=== PATIENT | female | born 1980 | race Caucasian/White ===

== ENCOUNTER → 2019-03-16 | Outpatient (CLI) | payer OTHER | LOC: RAD 13:18 | DX: M76.892 Other specified enthesopathies of left lower limb, excluding foot (principal) ==

== ENCOUNTER → 2019-12-09 | Outpatient (CLI) | payer OTHER ==
[2019-12-09 09:10] LABS: EOS # 0.1 (0.04-0.40); EOS % 1.8 % (1.0-5.0); HEMATOCRIT 43.5 % (37.0-47.0); HEMOGLOBIN 14.7 g/dL (12.5-16.0); LYMPH# 1.4 (1.50-4.00); MEAN CELL VOLUME 90 fl (78-100); MEAN CORPUSCULAR HEMOGLOBIN 30 pg (27-31); MEAN CORPUSCULAR HGB CONC 34 g/dL (33-37); MONO # 0.5 (0.20-0.80); NEU # 4.7 (1.40-6.50); PLATELET COUNT 225 K/mm3 (130-400); RED BLOOD COUNT 4.84 M/mm3 (4.10-5.30); RED CELL DISTRIBUTION WIDTH 13.1 % (11.5-14.5); WHITE BLOOD COUNT 6.8 K/mm3 (4.8-10.8)
[2019-12-09 09:11] LABS: ALBUMIN 4.7 g/dL (3.5-5.0)
[2019-12-09 09:12] LABS: CALCIUM 9.5 mg/dL (8.3-10.5)
[2019-12-09 09:13] LABS: TOTAL PROTEIN 7.6 g/dL (6.4-8.3)
[2019-12-09 09:15] LABS: TOTAL BILIRUBIN 0.8 mg/dL (0.2-1.2)
== END ==
LOC: RAD 08:47
PROVIDERS: Physician Assistant
DX: Z13.29 Encounter for screening for other suspected endocrine disorder (principal); E03.9 Hypothyroidism, unspecified; K90.9 Intestinal malabsorption, unspecified; E78.49 Other hyperlipidemia; N92.0 Excessive and frequent menstruation with regular cycle

== ENCOUNTER → 2019-12-27 | Outpatient (CLI) | payer OTHER | LOC: LAB 12:21 | DX: Z20.828 Contact with and (suspected) exposure to other viral communicable diseases (principal) ==

== ENCOUNTER → 2020-02-03 | Outpatient (CLI) | payer OTHER | LOC: LAB 10:48 | DX: E03.9 Hypothyroidism, unspecified (principal); R79.89 Other specified abnormal findings of blood chemistry ==

== ENCOUNTER → 2020-05-08 | Outpatient (CLI) | payer OTHER | LOC: LAB 09:44 | DX: Z20.828 Contact with and (suspected) exposure to other viral communicable diseases (principal) ==

== ENCOUNTER → 2020-12-25 | Outpatient (CLI) | payer OTHER ==
[2020-12-25 07:55] LABS: BASO # 0.04 (0.02-0.10); EOS # 0.17 (0.04-0.40); EOS % 4.4 % (1.0-5.0); HEMATOCRIT 39.4 % (37.0-47.0); HEMOGLOBIN 14.1 g/dL (12.5-16.0); LYMPH# 1.29 (1.50-4.00); MEAN CELL VOLUME 88 fl (78-100); MEAN CORPUSCULAR HEMOGLOBIN 32 pg (27-31); MEAN CORPUSCULAR HGB CONC 36 g/dL (33-37); MEAN PLATELET VOLUME 9.6 fl (7.4-10.4); MONO # 0.35 (0.20-0.80); NEU # 2.04 (1.40-6.50); PLATELET COUNT 179 K/mm3 (130-400); RED BLOOD COUNT 4.47 M/mm3 (4.10-5.30); WHITE BLOOD COUNT 3.9 K/mm3 (4.8-10.8)
[2020-12-25 08:14] LABS: POTASSIUM 4.1 mmol/L (3.5-5.1)
[2020-12-25 08:15] LABS: ALBUMIN 4.2 g/dL (3.5-5.0)
[2020-12-25 08:16] LABS: CALCIUM 8.9 mg/dL (8.3-10.5)
[2020-12-25 08:17] LABS: TOTAL PROTEIN 6.8 g/dL (6.4-8.3)
[2020-12-25 08:19] LABS: TOTAL BILIRUBIN 0.7 mg/dL (0.2-1.2)
== END ==
LOC: LAB 07:41
PROVIDERS: Physician Assistant
DX: Z00.00 Encounter for general adult medical examination without abnormal findings (principal); E03.9 Hypothyroidism, unspecified; E55.9 Vitamin D deficiency, unspecified

== ENCOUNTER → 2021-11-22 | Outpatient (CLI) | payer OTHER | LOC: LAB 07:34 | DX: Z12.31 Encounter for screening mammogram for malignant neoplasm of breast (principal) ==

== ENCOUNTER 2024-04-30 21:44 | Emergency (ER) | payer OTHER ==
[~2024-04-30] VITALS: Ht 172.7 cm; Wt 94.1 kg
[2024-04-30] MEDS ORDERED: PHENTERMINE15 MG PO (21:54)
[2024-04-30] MEDS ORDERED: LEVOTHYROXINE0.05 MG PO (21:54)
[2024-04-30] MEDS ORDERED: diphenhydrAMINE 50 MG/ML 1 ML VIAL IV ONE (22:15)
[2024-04-30 22:30] LABS: BASO # 0.02 K/mm3 (0.02-0.10); HEMATOCRIT 38.2 % (37.0-47.0); HEMOGLOBIN 13.7 g/dL (12.5-16.0); LYMPH# 1.65 K/mm3 (1.50-4.00); MEAN CELL VOLUME 86 fl (78-100); MEAN CORPUSCULAR HEMOGLOBIN 31 pg (27-31); MEAN CORPUSCULAR HGB CONC 36 g/dL (33-37); MEAN PLATELET VOLUME 9.6 fl (7.4-10.4); MONO # 0.65 K/mm3 (0.20-0.80); PLATELET COUNT 157 K/mm3 (130-400); RED BLOOD COUNT 4.42 M/mm3 (4.10-5.30); RED CELL DISTRIBUTION WIDTH 12.3 % (11.5-14.5); WHITE BLOOD COUNT 9.9 K/mm3 (4.8-10.8)
[2024-04-30 22:33] LABS: ALBUMIN 4.5 g/dL (3.5-5.0)
[2024-04-30 22:35] LABS: CALCIUM 9.5 mg/dL (8.3-10.5)
[2024-04-30 22:38] LABS: TOTAL BILIRUBIN 0.7 mg/dL (0.2-1.2)
[2024-04-30] MEDS ORDERED: ZOFRAN ODT4 MG PO (22:57)
[2024-04-30 23:44] LABS: URINE APPEARANCE CLEAR (CLEAR); URINE COLOR YELLOW (YELLOW)
[2024-04-30 23:45] LABS: PH-URINE 7.5 (5.0 - 8.0); URINE BILIRUBIN NEGATIVE (NEGATIVE); URINE BLOOD TRACE-INTACT (NEGATIVE); URINE GLUCOSE NEGATIVE (NEGATIVE); URINE KETONE 1+ (NEGATIVE); URINE LEUKOCYTE ESTERASE NEGATIVE (NEGATIVE); URINE NITRATE NEGATIVE (NEGATIVE); URINE PROTEIN(semi-quant) 2+ (NEGATIVE)
[2024-05-01 00:05] VITALS: BP 129/82
== END 2024-05-01 00:08 | disposition home or self-care (01) ==
LOC: ED 21:44
PROVIDERS: Family Medicine
DX: E87.6 Hypokalemia (principal); R35.0 Frequency of micturition; R10.32 Left lower quadrant pain; E66.9 Obesity, unspecified; Z90.49 Acquired absence of other specified parts of digestive tract; Z68.31 Body mass index [BMI] 31.0-31.9, adult
CPT/HCPCS: J0780; J1200; J7120

== ENCOUNTER → 2024-05-05 | Outpatient (CLI) | payer OTHER ==
[~2024-05-05] MED LIST: LEVOTHYROXINE0.05 MG PO; PHENTERMINE15 MG PO; ZOFRAN ODT4 MG PO
[2024-05-05 06:43] LABS: BASO # 0.02 K/mm3 (0.02-0.10); EOS # 0.17 K/mm3 (0.04-0.40); EOS % 3.6 % (1.0-5.0); HEMATOCRIT 41.5 % (37.0-47.0); HEMOGLOBIN 14.8 g/dL (12.5-16.0); LYMPH# 1.72 K/mm3 (1.50-4.00); MEAN CELL VOLUME 89 fl (78-100); MEAN CORPUSCULAR HEMOGLOBIN 32 pg (27-31); MEAN CORPUSCULAR HGB CONC 36 g/dL (33-37); MEAN PLATELET VOLUME 9.4 fl (7.4-10.4); MONO # 0.36 K/mm3 (0.20-0.80); NEU # 2.44 K/mm3 (1.40-6.50); PLATELET COUNT 176 K/mm3 (130-400); RED BLOOD COUNT 4.69 M/mm3 (4.10-5.30); RED CELL DISTRIBUTION WIDTH 12.5 % (11.5-14.5); WHITE BLOOD COUNT 4.7 K/mm3 (4.8-10.8)
[2024-05-05 07:04] LABS: ALBUMIN 4.5 g/dL (3.5-5.0)
[2024-05-05 07:05] LABS: CALCIUM 9.4 mg/dL (8.3-10.5)
[2024-05-05 07:06] LABS: TOTAL PROTEIN 7.1 g/dL (6.4-8.3)
[2024-05-05 07:08] LABS: TOTAL BILIRUBIN 0.8 mg/dL (0.2-1.2)
== END ==
LOC: LAB 06:24
PROVIDERS: Physician Assistant
DX: E03.9 Hypothyroidism, unspecified (principal); E78.5 Hyperlipidemia, unspecified; K90.9 Intestinal malabsorption, unspecified